=== PATIENT | female | born 1980 | race Caucasian/White ===

== ENCOUNTER → 2017-07-27 | Outpatient (CLI) | payer BC ==
[~2017-07-27] MED LIST: NITR-5 PO; OXYC-609 PO; PHEN-876 PO; POTATAB13 PO
--- NOTE | 2017-07-27 11:21 | DIAGNOSTIC IMAGING REPORT ---
[facility]UB CLINICAL HISTORY: NEPHROLITHIASIS COMPARISON STUDY: 07/14/2016 FINDINGS: No significant nephrocalcinosis on the current study. Interval removal of the left ureteral stent. Calcifications a left lateral soft tissue pelvic region most likely vascular. Bowel pattern is nonobstructive. IMPRESSION: No significant nephrocalcinosis. Nonobstructive bowel pattern. The above report was generated using voice recognition software. It may contain grammatical, syntax or spelling errors. Electronically signed by: Kasi Randall M.D. 07/27/2017 11:20 AM Dictated Date/Time: 07/27/2017 11:19 AM
== END | disposition home or self-care (01) ==
LOC: C.RADBC 10:43
PROVIDERS: ATTEND Urology
DX: N20.0 Calculus of kidney (principal)

== ENCOUNTER → 2017-09-20 | Outpatient (CLI) | payer BC | END | disposition home or self-care (01) | LOC: C.PAPS 09:22 | PROVIDERS: ATTEND Obstetrics & Gynecology | DX: Z01.419 Encounter for gynecological examination (general) (routine) without abnormal findings (principal) ==

== ENCOUNTER → 2017-10-22 | Outpatient (CLI) | payer BC | END | disposition home or self-care (01) | LOC: C.PATHSPEC 10:49 | PROVIDERS: ATTEND Obstetrics & Gynecology | DX: B97.7 Papillomavirus as the cause of diseases classified elsewhere (principal) ==

== ENCOUNTER 2019-09-10 14:31 | Inpatient (IN) ==
[2019-09-10] MEDS ORDERED: OXYTOCIN 30 UNITS/500 ML BAG IV PRN ×2 (14:50)
[2019-09-10] MEDS ORDERED: LACTATED RINGER'S 1,000 ML IV PRN (14:50)
[2019-09-10 15:15] LABS: Appearance Urine Cloudy (Clear); Bacteria Urine Automated 1+ (Negative); Bilirubin Urine Negative (Negative); Blood Urine Trace (Negative); Color Urine Yellow; Epithelial Cell Urine Auto >30 /lpf (0-5); Glucose Urine UA Negative (Negative); Ketones Urine 1+ (Negative); Leukocyte Esterase Urine Negative (Negative); Nitrite Urine Negative (Negative); Protein Urine Negative (Negative); Specific Gravity Urine 1.021 (1.000-1.030); Urobilinogen Urine Negative (Negative)
[2019-09-10 15:24] LABS: Hematocrit (blood only) 35.6 % (37-47); Hemoglobin 11.7 g/dL (12.0-16.0); Mean Corpuscular Hemoglobin 29.6 pg (25-34); Mean Corpuscular Volume 90.1 fL (80-100); Platelet Count 264 K/uL (130-400); RDW Coefficient of Variation 14.9 % (11.5-14.5); RDW Standard Deviation 48.7 fL (36.4-46.3); Red Blood Count 3.95 M/uL (4.2-5.4); White Blood Count 11.54 K/uL (4.8-10.8)
--- NOTE | 2019-09-10 15:24 | History & Physical Report ---
Date of Service September 10, 2019 Assessment & Plan (1) Supervision of elderly multigravida: 39w0d tomorrow. Will plan IOL, starting with rodrigo agosto, to allow subsequent management of her renal stone by urology. Consult uro in AM for plans. (2) Right renal stone: US now to confirm stone still present and causing the renal colic as suspected. UA/C&S now to check for blood, and r/o UTI/pyelo. Given the sharp on-off contrast of her symptoms occurring at random, seems far more likely stone than infection. History of Present Illness Primary Care Provider: Марина Kahn MD 39yo at 38 6/7 with [facility]. This (like her prior one) is complicated by known kidney stones. She called in c/o acute onset severe R back / flank pain at 3am today, unrelieved by tylenol and heat, similar to her prior kidney stone obstruction pain. She notes her last was complicated by R nephrostomy tube with entry to the pleural space and injury to the lung during tube manipulation. She does not want another tube under any circumstances. She had good FM, no LOF an no VB. She arrived on L&D and still had no ob complaints. She notes that the flank pain suddenly disappeared. This too seems c/w stone to Kristie; she's had this before where a stone "rolls in" and "rolls out" of the ureter and pain acutely turns on and off. She is terrified of it recurring. Allergies Allergy/AdvReac Type Severity Reaction Status Date / Time Penicillins Allergy Unknown RASH,HIVES Verified 09/05/19 09:59 Home Medications Home Medications Medication Instructions Recorded Confirmed Type PNV cmb#95-ferrous fumarate-FA 1 tab PO QAM 06/14/19 09/05/19 History [] acetaminophen [Tylenol Extra 500 mg PO Q6H PRN 06/14/19 09/05/19 History Strength] albuterol sulfate 90 mcg/actuation 2 puff INHALATION Q6H PRN #8.5 gm 06/28/19 09/05/19 Rx aerosol inhaler Patient History Social History Preferred Language: Maori Communication Ability: Effective Beliefs That Will Affect Care: None marital status: Current Living Situation: Spouse and Family current occupational status: employed Other Information That Helps Us Care for You: No Feels Safe at Home: Yes Safety Concerns: Feels Safe At This Time Smoking Status: Light tobacco smoker Tobacco Type: cigarettes ; Cigarettes Per Day: 20 ; Do You Dip or Chew Tobacco: No ; Second Hand Exposure: Yes ; Hx Alcohol Use: Yes Hx Substance Use: No Dental Care, Regularly: Yes Physical Exam Constitutional: WD/WN, vitals as above Eyes: PERRL, conjunctivae normal, anicteric sclerae ENMT: external ear and nose normal, oropharynx normal Neck: normal visual inspection supple Respiratory: normal respiratory effort and able to speak in complete sentences; no respiratory distress Cardiovascular: Rate/Rhythm: regular rate and regular rhythm Extremities: + pedal edema Gastrointestinal (Abdomen): Gravid / AGA, nontender Musculoskeletal: no cyanosis or clubbing, extremities motor strength 5/5 Skin: no rashes, warm and dry Neurologic: patellar DTR's 2+ bilat, sensation intact Psychiatric: A+Ox3, euthymic affect Genitourinary: + CVA tenderness (very mild, R. Patient states would have been a LOT 1 hour ago!) Speculum/Bimanual Exam: no vaginal lesions, no vaginal bleeding and uterus nontender OB Exam Abdomen: + vertex and + estimated weight (7) Manual OB Exam: + cervical dilation 1 cm, + cervical effacement 50%, + station -2 and + amniotic fluid (No leaking evident) OB Exam Monitor Tracing: + external FHT monitor used, + external uterine monitor used and + category I Lymphatic: no cervical or axillary lymphadenopathy Results & Data Vital Signs (Past 12 Hours) Vital Signs Temp Pulse Resp BP 09/10/19 14:46 98.6 F 101 H 20 134/83 Code Status & VTE Plan VTE Prophylaxis Plan VTE Prophylaxis will be ordered: Yes Coding Level of Care Code None Diagnoses Supervision of elderly multigravida O09.529 Right renal stone N20.0
--- NOTE | 2019-09-10 15:40 | Labor Progress Brief Note ---
Date of Service September 10, 2019 Subjective Patient gave a history of "known stones" on her arrival. My review of her chart did not reveal any concrete evidence of renal stone during the current , however. I asked the patient if she had her diagnosis of this elsewhere, and she then admitted there isn't proof of a stone during this . She has, however, had pain in the last day that felt exactly like her prior stone and is making her extremely anxious. She does have a fairly traumatic history of complications with her prior nephrostomy. Her US was being done when I went back in to speak with her. The ultrasound is not able to confirm the presence of a stone at this time. The patient does have trace blood in her urinalysis, but also some other findings that suggest contamination. I told her I am unable to either prove or disprove the existence of a stone. My suspicion is that she does not have one at this time, or that if she did, it passed. I recommended that we continue to watch her as an outpatient and await labor. At this time the patient is extremely anxious about remaining at home in case her renal colic type pain recurs. She is inquiring about elective IOL at 39wk, which is after midnight. There is availability on the L&D schedule book. We discussed the risks of elective induction. Given her severe pain earlier and her fear that it will recur - and that treatment options will be limited by her - she asks for elective induction to proceed. Agree to admit the patient. Will place wallace bulb tonight after she has dinner. She will get IV hydration now to treat for possible stone and will allow route of access for pain meds if renal colic recurs. Results & Data Vital Signs (Past 12 Hours) Vital Signs Temp Pulse Resp BP 09/10/19 14:46 98.6 F 101 H 20 134/83 Coding Level of Care Code None
[2019-09-10 16:06] LABS: Mean Corpuscular Hgb Conc 32.9 g/dL (32-36)
[2019-09-10] MEDS: LACTATED RINGER'S 1,000 ML IV SCH (16:18)
--- NOTE | 2019-09-10 16:20 | Ultrasound Report ---
RENAL ULTRASOUND HISTORY: R stone, new onset pain COMPARISON: Abdomen and pelvis CT 06/23/2018. FINDINGS: Right kidney: 12.2 cm. No renal stones. No hydronephrosis. Normal corticomedullary differentiation an d cortical thickness. Left kidney: Not imaged at the request of the referring physician. Bladder: No bladder wall thickening. The ureteral jets are not identified. Miscellaneous: The fetus is partially visualized and appears to be in a cephalic presentation. IMPRESSION: Normal right kidney and bladder. ACT 112: Negative or not required by law. Electronically signed by: Jacky Jhaveri M.D. 09/10/2019 4:19 PM
--- NOTE | 2019-09-10 18:54 | Procedure Note ---
Procedure Note Date of Service September 10, 2019 Note Kristie ate dinner. She states that she has continued to have off-and-on R flank pain, 7/10 when present, but did not call out for help since "it wasn't anything I couldn't handle." She denies pain at this moment. She was reminded this is an elective induction and asked if she still wanted to proceed. She said she "cannot continue like this" and very much does want to start the induction. Patient was in bed and a reactive NST had been obtained. The wallace bulb placement process was explained to the patient and all questions answered to her satisfaction. She was positioned in lithotomy, and a latex wallace was prepared with a lubricated stylet and a syringe of 30cc sterile water. A gloved hand was used to identify and examine the cervix which was found to be 1/50/-2. The catheter was advanced to a point just outside the internal os, then the wallace was slid forward off of the stylet and into the uterine cavity outside the amniotic sac. The stylet was removed, and the wallace balloon was inflated to 30cc. The wallace was gently seated downward against the internal cervical os and fixed to the patient's thigh. The heart tones remained cat 1 and will be monitored for 1 hour prior to the patient being taken off monitor to rest. Coding
[2019-09-11] MEDS: LACTATED RINGER'S 1,000 ML IV SCH (00:18)
--- NOTE | 2019-09-11 00:26 | Labor Progress Brief Note ---
Date of Service September 11, 2019 Subjective Contractions mild. Asked about R renal pain. She says "I still have it on and off. Not different than before. Maybe it IS just how the baby is laying or something." Assessment & Plan (1) Renal colic on right side: Leading to elective induction of labor. Patient without evidence of stone but requested induction due to fear of recurring severe pain. Will start pitocin now that midnight is past and she is 39 0/7. Desires no epidural as with her first delivery. Physical Exam Physical Exam: FHT Cat 1 [place] quiet Cvx 4/50/-2 Membranes intact Results & Data Vital Signs (Past 12 Hours) Vital Signs Temp Pulse Resp BP 09/10/19 23:01 81 136/60 09/10/19 18:50 98.8 F 95 H 18 143/82 H 09/10/19 14:46 98.6 F 101 H 20 134/83 Coding Level of Care Code None Diagnoses Renal colic on right side N23
--- NOTE | 2019-09-11 06:28 | Labor Progress Brief Note ---
Date of Service September 11, 2019 Subjective Tolerating contractions. Assessment & Plan (1) Renal colic on right side: Now believed by the patient to be pain due to movements. Nevertheless this led to her requesting IOL due to fear of what she believed was recurrent renal colic. History of prior obstructing stone, complications of nephrostomy tube and delivery due to same. (2) Encounter for induction of labor: Pitocin at 7, now added AROM. Patient continues to decline epidural. Physical Exam Physical Exam: Cervix 4/50/-2 AROM clear fluid FHT Cat 1 [place] Q2-3. Results & Data Vital Signs (Past 12 Hours) Vital Signs Temp Pulse Resp BP 09/11/19 05:29 86 18 135/75 09/11/19 04:30 73 18 138/75 09/11/19 03:48 85 143/81 H 09/11/19 03:15 98.6 F 18 09/11/19 02:47 80 137/70 09/11/19 01:57 78 18 130/63 09/11/19 00:57 83 136/72 09/10/19 23:01 81 136/60 09/10/19 18:50 98.8 F 95 H 18 143/82 H Coding Level of Care Code None Diagnoses Renal colic on right side N23 Encounter for induction of labor Z34.90
[2019-09-11] MEDS ORDERED: BUTORPHANOL TARTRATE 1 MG/ML VIAL IV PRN (07:27)
--- NOTE | 2019-09-11 07:32 | Labor Progress Brief Note ---
Date of Service September 11, 2019 Subjective Reason For Note: Other (Change of provider) Assessment & Plan (1) Encounter for induction of labor: - tracing Cat II - accelerations and variability - pt uncomfortable, declines an epidural - stadol 1mg IV now (2) Renal colic on right side: Results & Data Vital Signs (Past 12 Hours) Vital Signs Temp Pulse Resp BP 09/11/19 07:09 99.0 F 79 20 169/78 H 09/11/19 06:25 97 H 144/94 H 09/11/19 05:29 86 18 135/75 09/11/19 04:30 73 18 138/75 09/11/19 03:48 85 143/81 H 09/11/19 03:15 98.6 F 18 09/11/19 02:47 80 137/70 09/11/19 01:57 78 18 130/63 09/11/19 00:57 83 136/72 09/10/19 23:01 81 136/60 Coding Level of Care Code None Diagnoses Encounter for induction of labor Z34.90 Renal colic on right side N23
--- NOTE | 2019-09-11 08:32 | Delivery Summary ---
Vaginal Delivery Summary Date of Service September 11, 2019 Vaginal Delivery Summary Findings: Viable female with Apgars of 8 and 9 baby delivered over an intact perineum with second-degree left periurethral laceration. Cord clamped and cut. Cord blood samples obtained. Placenta delivered spontaneously. Second-degree left periurethral laceration repaired with local anesthesia. Estimated blood loss 300 cc. Labor note: The patient is a 39-year-old 2 para 0-1-0-1 with an EDC of 17 September at 39 weeks gestational age, who was admitted for elective induction of labor secondary to history of kidney stones. The patient presented to labor and delivery for evaluation of sharp right colicky pain. The patient was concerned that this was consistent with a renal stone. The patient's last was complicated by a kidney stone. She was transferred to [facility] where she had a nephrostomy tube with inadvertent perforation of her pleural cavity. This necessitated an induction at 35 weeks gestational age. During this the patient has done relatively well with no signs of recurrent kidney stone until recently. The patient's course to date had been unremarkable. Her blood type was A+, antibody negative, rubella immune, hepatitis B negative, she had a negative cell free DNA screen, she had an elevated 1 hour Glucola at 16 weeks, with normal 2-hour glucose tolerance test at 16 and 28 weeks, and a negative third trimester beta strep culture. The patient was evaluated on labor and delivery for a possible renal stone. Ultrasound did not confirm the diagnosis of a stone. The patient expressed a gr eat deal of anxiety for recurrence of the stone causing complications with . The admitting physician discussed options and offered elective induction. The patient had a cervical Mcmillan catheter placed for ripening and Pitocin induction was beginning. The patient progressed to 4 cm and had artificial rupture of membranes of clear fluid. At this point delivering physician assumed care for the patient. heart rate tracing was category 2 with good accelerations and variability. Patient requested and received Stadol 1 mg IV, she declined regional anesthesia. Patient progressed to full dilatation and began her second stage. She pushed for approximately 15 minutes delivering the viable female . Cord was clamped and cut. Cord blood samples were obtained and the placenta was delivered spontaneously. Inspection of the perineum showed a left periurethral second-degree laceration. This was infiltrated with 1% lidocaine and closed with a running 4-0 Vicryl suture. He mostasis was present. Sponge and needle count was correct. Estimated blood loss 300 cc.
[2019-09-11] MEDS ORDERED: SUPERCREAM 0.870% 15 GM JAR EXT PRN (09:30)
[2019-09-11] MEDS ORDERED: ACETAMINOPHEN W/CODEINE #3 1 TAB PO PRN (09:30)
[2019-09-11] MEDS ORDERED: BENZOCAINE 20% AER SPR 82.5 GM CAN EXT PRN (09:30)
[2019-09-11] MEDS ORDERED: ACETAMINOPHEN 325 MG TAB PO PRN (09:30)
[2019-09-11] MEDS ORDERED: OXYTOCIN 30 UNITS/500 ML BAG IV PRN (09:30)
[2019-09-11] MEDS ORDERED: DIPHTHERIA/TETANUS/PERTUSSIS 0.5 ML SYR/VIAL IM ONE (09:30)
[2019-09-11] MEDS ORDERED: HYDROCORTISONE ACETATE 25 MG SUPP PR PRN (09:30)
[2019-09-11] MEDS ORDERED: ALBUTEROL HFA 8 GM INHALER INH PRN (09:39)
[2019-09-11] MEDS: IBUPROFEN 600 MG TAB PO PRN ×2 (10:23→15:19)
[2019-09-11] MEDS: DOCUSATE SODIUM 100 MG CAP PO SCH (20:18)
[2019-09-12] MEDS: IBUPROFEN 600 MG TAB PO PRN (02:18)
--- NOTE | 2019-09-12 05:54 | Obstetrical Progress Note ---
Date of Service <Steve Lin MD - Last Filed: 09/12/19 07:35> September 12, 2019 Assessment & Plan <Steve Lin MD - Last Filed: 09/12/19 07:35> (1) Encounter for induction of labor: PPD#1 - encourage ambulation, and oral intake - follow-up 6 weeks after delivery for exam and colposcopy Subjective <Steve Lin MD - Last Filed: 09/12/19 07:35> Ms. Galvan is a 39 y/o female ; PPD #1 following spontaneous vaginal delivery; doing well this morning; having minimal abdominal cramping/pain; voiding well; tolerating meals overnight; and able to ambulate some; some persistent spotting with intermittent improvement this morning. Review of Systems Constitutional: denies fever; chills; sweats; headache Respiratory: denies shortness of breath, difficulty breathing Cardiac: denies chest pain; palpitations; chest pressure Breast: denies breast pain : denies dysuria Physical Exam <Steve Lin MD - Last Filed: 09/12/19 07:35> General: alert; oriented; no acute distress Cardiac: RRR; no m/g/r Respiratory: CTAB a/p; no wheezes/rales/rhonchi; no increased work of breathing; symmetrical chest rise; no respiratory distress Abdomen: soft; NT/ND; bowel sounds positive Uterus: uterine fundus firm; palpable 3cm below umbilicus Lower extrem: no lower extremity edema or swelling; no deep calf pain; Brenna's sign negative b/l Results & Data <Steve Lin MD - Last Filed: 09/12/19 07:35> Vital Signs (Past 12 Hours) Vital Signs Temp Pulse Pulse Resp BP 09/12/19 04:40 36.6 C 92 H 18 156/79 H 09/11/19 23:00 36.6 C 92 H 18 153/91 H 09/11/19 20:18 36.5 C 92 H 18 148/91 H Medications Administered Current Inpatient Medications Acetaminophen (Tylenol) 650 mg PO Q6H PRN PRN Reason: Pain/JOHN/Fever Stop: 10/11/19 09:29 Acetaminophen/Codeine Phosphate (Tylenol W/Codeine #3) 1 - 2 tab PO Q4H PRN PRN Reason: Pain not controlled with... Stop: 10/11/19 09:29 Albuterol (Ventolin Hfa) 2 puffs INH Q6H PRN PRN Reason: SHORTNESS OF BREATH OR WHEEZIN Stop: 10/11/19 09:38 Benzocaine (Dermoplast Pain Relieving [place]) 1 appln EXT PRN PRN PRN Reason: Perineal Discomfort Stop: 10/11/19 09:29 Last Admin: 09/11/19 11:39 Dose: 82.5 appln Documented by: Bisacodyl (Dulcolax) 5 mg PO 1999 [facility] Stop: 09/12/19 20:01 Cocaine HCl (Supercream 0.870%) 1 gm EXT BID PRN PRN Reason: Hemorrhoidal Inflammation Stop: 09/25/19 09:29 Docusate Sodium (Colace) 100 mg PO DAILY@08,21 [facility] Stop: 10/11/19 20:59 Last Admin: 09/11/19 20:18 Dose: 100 mg Documented by: Ferrous Sulfate (Feosol) 325 mg PO DAILY@08 [facility] Stop: 10/12/19 07:59 Hydrocortisone (Anusol Hc) 25 mg [place] BID PRN PRN Reason: Hemorrhoidal Inflammation Stop: 10/11/19 09:29 Oxytocin (Pitocin) 30 units in 500 mls @ 333.333 mls/hr IV .Q1H30M PRN; Protocol PRN Reason: Bleeding Control Stop: 10/11/19 09:29 Ibuprofen (Motrin) 600 mg PO Q4H PRN PRN Reason: Pain/JOHN/Cramping/Fever Stop: 10/11/19 09:29 Last Admin: 09/12/19 02:18 Dose: 600 mg Documented by: Prenat Multivit/[place]/Iron/Folic Ac ( Vitamin) 1 tab PO DAILY@08 [facility] Stop: 10/12/19 07:59 <Dane Davenport Jr, MD, FACOG - Last Filed: 09/12/19 07:39> Co-Signing Physician Notes Resident Physician Supervision Note: I was present with Dr. Lin during the history and exam. I discussed the case with the resident and agree with the findings and plan as documented in the note. Any exceptions or clarifications are listed here: Doing well, pt desires d/c. Instructions given, f/u in 6 weeks Documented By: Dane Davenport Jr, MD, FACOG Resident Activity Tracking <Steve Lin MD - Last Filed: 09/12/19 07:35> Resident Involvement: Resident Care Provided Care Provided: Adult Hospital Medicine
[2019-09-12] MEDS ORDERED: PRENATAL VITAMIN 1 TAB PO SCH (08:00)
[2019-09-12] MEDS ORDERED: FERROUS SULFATE 325 MG TAB PO SCH (08:00)
[2019-09-12] MEDS: DOCUSATE SODIUM 100 MG CAP PO SCH (08:58)
[2019-09-12] MEDS ORDERED: bisacodyL 5 MG TABEC PO SCH (20:00)
== END 2019-09-12 10:30 | disposition home or self-care (01) | DRG 807 ==
LOC: OPB 14:31 → 4S1 14:33 → 4S2 09-11 10:40